=== PATIENT | female | born 1945 | race Caucasian/White ===

== ENCOUNTER 2016-12-29 07:54 | Day surgery (SDC) | payer MEDICARE ==
[2016-12-29] VITALS (7 sets, daily range): BP systolic 101–134; BP diastolic 54–79; PULSE 80–102; RESP 17–20; TEMP 97.2–98.2; O2SAT 92–97
[~2016-12-29] VITALS: Ht 167.6 cm; Wt 82.7 kg
[~2016-12-29 07:54] MED LIST: Z.0.NO CURRENT MEDS
[2016-12-29] MEDS ORDERED: ASPI81CH37 CHEW (08:18)
[2016-12-29] MEDS ORDERED: DILT180C56 PO (08:18)
[2016-12-29] MEDS ORDERED: ESTE500T4 PO (08:19)
[2016-12-29] MEDS ORDERED: CENTTAB PO (08:20)
[2016-12-29] MEDS ORDERED: B-COCAP9 PO (08:20)
[2016-12-29] MEDS ORDERED: BOSW5TAB PO (08:21)
[2016-12-29] MEDS ORDERED: PRAV40TA2 PO (08:22)
[2016-12-29] MEDS ORDERED: CO Q50CA PO (08:23)
[2016-12-29] MEDS ORDERED: LIDOCAINE 1%/EPINEPHrine 1:100,000 SOLN 20 ML VIAL ONE (08:52)
[2016-12-29] MEDS ORDERED: SODIUM CHLOR 0.9% 1000 ML INJ 1,000 ML IV SCH (09:00)
[2016-12-29] MEDS ORDERED: MIDAZOLAM HCL 5 MG/5 ML VIAL ONE (09:29)
[2016-12-29] MEDS ORDERED: fentaNYL CITRATE 250 MCG/5 ML AMP ONE (09:29)
[2016-12-29] MEDS ORDERED: oxyCODONE/ACETAMINOPHEN 5 MG/325 MG TAB PO PRN (11:00)
--- NOTE | 2016-12-29 11:05 | RADRPT ---
EXAM DATE/TIME: 12/29/2016 10:43 [facility] COMPARISON: CT NEEDLE BIOPSY LUNG, LEFT, December 29, 2016, 9:37. INDICATIONS : Post lung biopsy. MEDICAL HISTORY : None. SURGICAL HISTORY : None. ENCOUNTER: Initial ACUITY: 1 day PAIN SCORE: 0/10 LOCATION: Left chest FINDINGS: A single frontal expiratory view of the chest was performed. Left upper lobe density noted. No evide nce of pneumothorax. Mediastinal structures are in the midline. The cardio-mediastinal contours and bronchopulmonary markings are unremarkable for an expiratory exam . Osseous structures are intact. CONCLUSION: No acute disease. No pneumothorax. Abiodun Simeon MD on December 29, 2016 at 11:03 Board Certified Radiologist. This report was verified electronically.
--- NOTE | 2016-12-29 17:02 | RADRPT ---
EXAM DATE/TIME: 12/29/2016 09:37 [facility] COMPARISON: No previous studies available for comparison. INDICATIONS : Left lung mass. SEDATION TIME: 30 minutes BIOPSY SITE: Left MEDICATION(S): 1.) 3 mg midazolam (Versed) IV 2.) 150 mcg fentanyl (Sublimaze) IV DEVICE(S): 1.) 20 gauge Temno core biopsy needle MEDICAL HISTORY : Hypertension. Cardiovascular disease. SURGICAL HISTORY : None. ENCOUNTER: Initial ACUITY: 1 day PAIN SCORE: 0/10 LOCATION: Left chest A total of three core specimen(s) were obtained and sent to the laboratory for pathologic evaluation. PROCEDURE: 1. CT guided lung biopsy. 2. Conscious sedation with continuous EKG and oximetry monitoring. 3. EKG and oximetry remained stable throughout the procedure. Prior to the procedure informed consent was obtained. Any appropriate prior imaging studies were rev iewed. Using automated exposure control and adjustment of the mA and/or kV according to patient size, radiation dose was kept as low as reasonably achievable to obtain optimal diagnostic quality images. The site was prepped in a sterile fashion. Full sterile technique was used, including cap, mask, dominick rile gloves and gown and a large sterile sheet. Hand hygiene and 2% chlorhexidine and/or betadine/al cohol prep was utilized per protocol for cutaneous antisepsis. The skin and subcutaneous tissues wer e infiltrated with local anesthetic solution. With CT guidance the previously identified target was localized. Biopsy was performed using the presc ribed needle as above. Adequate hemostasis was obtained with compression at the puncture site. Follow-up CT scan reveals no pneumothorax. Conscious sedation was performed with the prescribed dosages and duration as above in the presence of an independent trained radiology nurse to assist in the monitoring of the patient. EKG and oximetry remained stable throughout the procedure. The patient tolerated the procedure well and there were no complications. The patient was sent to Radiology Outpatient Unit in stable condition. CONCLUSION: Uncomplicated CT guided biopsy. Abiodun Simeon MD on December 29, 2016 at 17:00 Board Certified Radiologist. This report was verified electronically.
== END 2016-12-29 13:30 | disposition home or self-care (01) ==
LOC: HRAD 07:54 → HRIP 07:57 → HRAD 13:30
PROVIDERS: ATTEND Family Medicine
DX: C34.12 Malignant neoplasm of upper lobe, left bronchus or lung (principal); I10 Essential (primary) hypertension; F32.9 Major depressive disorder, single episode, unspecified; J44.9 Chronic obstructive pulmonary disease, unspecified; Z87.891 Personal history of nicotine dependence
CPT/HCPCS: 32405; 71010; 77012; 88305; 88341; 88342; J2250; J3010; J7030